=== PATIENT | female | born 1980 | race African-American/Black ===

== ENCOUNTER 2018-03-17 13:03 | Emergency (ER) | payer OTHER ==
[~2018-03-17] VITALS: Ht 165.1 cm; Wt 87.6 kg
--- NOTE | 2018-03-17 13:29 | NUR ---
BIB W C/O ALLERGIC REACTION FROM [facility], PER PT "AIRBORNE", "PASSED OUT 2 HOURS AGO AT WORK" . TO ER BED 1, HOOKED TO MONITOR, AWAITING MD BRIGGS
--- NOTE | 2018-03-17 13:47 | NUR ---
AMELIE DIXON AT BEDSIDE
[2018-03-17 13:59] LABS: BILIRUBIN,URINE Negative (NEGATIVE); BLOOD, URINE Large Ery/uL (NEGATIVE); KETONES,URINE Negative (NEGATIVE); LEUKOCYTE ESTERASE ,URINE Small (NEGATIVE); NITRITE, URINE Negative (NEGATIVE); PROTEIN,URINE Trace mg/dl (NEGATIVE); UGLUCOSE Negative (NEGATIVE); UROBILINOGEN,URINE 0.2 EU/dL (0.2)
[2018-03-17 14:00] LABS: APPEARANCE,URINE HAZY (CLEAR)
[2018-03-17 14:02] LABS: COLOR,URINE DARK YELLOW (YELLOW)
[2018-03-17 14:04] LABS: BACTERIA,URINE Few /HPF (None Seen)
[2018-03-17 14:06] LABS: BASOPHILS % (AUTO) 0.3 % (0.0-2.0); EOSINOPHILS % (AUTO) 0.3 % (0.0-6.0); HEMATOCRIT 39 % (33-45); HEMOGLOBIN 12.9 g/dL (11.5-14.8); LYMPHOCYTES # (AUTO) 1.4 /CMM (0.8-4.8); LYMPHOCYTES % (AUTO) 17.1 % (20.0-44.0); MEAN CORPUSCULAR HGB CONC 33 g/dl (31.0-36.0); MEAN CORPUSCULAR VOLUME 88 fL (82-100); MONOCYTES # (AUTO) 0.4 /CMM (0.1-1.30); MONOCYTES % (AUTO) 5.2 % (2.0-12.0); NEUTROPHILS # (AUTO) 6.3 /CMM (1.8-8.9); NEUTROPHILS % (AUTO) 77.1 % (43.0-81.0); PLATELET COUNT (AUTO) 261 /CMM (150-450); WHITE BLOOD COUNT (AUTO) 8.2 K/uL (4.3-11.0)
[2018-03-17 14:13] LABS: CALCIUM, SERUM 9.1 mg/dL (8.5-10.1); POTASSIUM 3.7 mmol/L (3.5-5.1)
[2018-03-17 14:18] LABS: ALBUMIN 3.6 g/dL (3.4-5.0); BILIRUBIN,TOTAL 0.3 mg/dL (0.2-1.0); TOTAL PROTEIN, SERUM 7.3 g/dL (6.4-8.2)
--- NOTE | 2018-03-17 15:28 | NUR ---
Patient discharged to home in stable condition. Written and verbal after care instructions given. Patient verbalizes understanding of instruction.
[2018-03-17 15:29] VITALS: BP 142/88
== END 2018-03-17 15:30 | disposition home or self-care (01) ==
LOC: ER 13:05
DX: T78.1XXA Other adverse food reactions, not elsewhere classified, initial encounter (principal); R55 Syncope and collapse; X58.XXXA Exposure to other specified factors, initial encounter
CPT/HCPCS: 36415; 71045; 80053; 81001; 84703; 85025; 93005; 99284; A4606; 81000-TC